=== PATIENT | male | born 1975 | race African-American/Black ===

== ENCOUNTER 2020-03-14 03:59 | Emergency (ER) | payer BC | END 2020-03-14 04:22 | LOC: ERS 03:59 | DX: F10.10 Alcohol abuse, uncomplicated (principal); I10 Essential (primary) hypertension; D50.9 Iron deficiency anemia, unspecified; Z79.899 Other long term (current) drug therapy | CPT/HCPCS: 99284 ==

== ENCOUNTER 2020-08-13 07:53 | Outpatient (CLI) | payer BC ==
--- NOTE | 2020-08-13 10:33 | ULT ---
SCROTAL SONOGRAM WITH DUPLEX EVALUATION: HISTORY: Left scrotal mass. FINDINGS: Right testicle is 4.9 cm length and the left 4.1 cm. Normal appearance with good color and spectral Doppler flow. Within the left side of the scrotum, favored to be associated with the epididymis is a large multisep tated and multiloculated cystic mass with a small amount of internal debris. The largest cystic comp onent is 3.2 cm x 2.8 cm x 2.6 cm greatest diameters. Measured overall, estimated at 5.1 cm. IMPRESSION: Large complex cystic mass in the left scrotum/epididymis. Large spermatocele versus complex epididym al cyst. Normal appearance of the testicles. POS: BST
== END 2020-08-13 07:54 | disposition home or self-care (01) ==
LOC: BICULT 07:53
PROVIDERS: ATTEND Urology
DX: N43.40 Spermatocele of epididymis, unspecified (principal)
CPT/HCPCS: 76870; 93976

== ENCOUNTER 2024-02-04 09:06 | Emergency (ER) | payer BC, OTHER ==
[2024-02-04] MEDS ORDERED: Boostrix 0.5 ML (Tdap) VIAL (>/=7 yrs of age) ONE (09:24)
[2024-02-04] MEDS ORDERED: Ketorolac Tromethamine 30 MG (1 mL) VIAL ONE (09:24)
== END 2024-02-04 10:25 | disposition home or self-care (01) ==
LOC: ERS 09:06
DX: S20.211A Contusion of right front wall of thorax, initial encounter (principal); S60.511A Abrasion of right hand, initial encounter; M25.511 Pain in right shoulder; I10 Essential (primary) hypertension; V00.141A Fall from scooter (nonmotorized), initial encounter; Z79.899 Other long term (current) drug therapy
CPT/HCPCS: 71046; 90471; 90715; 96372; J1885

== ENCOUNTER 2024-10-30 17:11 | Emergency (ER) | payer BC, OTHER ==
[2024-10-30 17:43] LABS: Bacteria/HPF None Seen HPF (None Seen); Bilirubin Negative (Negative); Blood, Urine Negative (Negative); CAUTI Indications for Culture Acute Hematuria; Clarity Clear (Clear); Glucose, Urine (Dipstick) Normal (Negative); Ketone, Urine Negative (Negative); Leukocyte Negative Leu/uL (Negative); Nitrite Negative (Negative); Protein, Urine (Dipstick) Negative (Neg-Trace); RBC/HPF 0-3 HPF (0-3); Specific Gravity, Urine 1.025 (1.002-1.036); Squamous Epithelial 0-3 HPF (0-3); Urobilinogen Normal mg/dL (Less than 2); WBC/HPF 0-3 HPF (0-3)
[2024-10-30 17:44] LABS: Urine Culture Reflex No No
[2024-10-30] MEDS ORDERED: Ketorolac Tromethamine 30 MG (1 mL) VIAL ONE (18:11)
[2024-10-30 18:55] LABS: #Basophils Less than 0.03 10x3/uL (0.0-0.2); %Basophils 0.2 % (0.0-1.0); %Eosinophils 0.9 % (0.0-10.0); %Lymphocytes 14.7 % (21.0-51.0); %Monocytes 7.9 % (0.0-10.0); Hematocrit 38.9 % (42.0-52.0); Hemoglobin 12.8 g/dL (14.0-18.0); Mean Corpuscular HGB CONC 32.9 g/dL (32.0-36.0); Mean Corpuscular Hemoglobin 29.2 pg (27.0-31.0); Mean Corpuscular Volume 88.8 fL (78.0-98.0); Mean Platelet Volume 9.7 fL (7.4-10.4); Platelet Count 245 10x3/uL (130-400); RBC Distribution Width 13.6 % (11.5-14.5); Red Blood Cell (RBC) Count 4.38 mill/uL (4.70-6.10)
[2024-10-30 19:09] LABS: ALT (SGPT) 25 U/L (8-55); AST (SGOT) 18 U/L (5-34); Albumin 3.8 g/dL (3.5-5.0); Alkaline Phosphatase 50 U/L (40-110); Anion Gap 12 mmol/L (10-20); BUN (Urea Nitrogen) 22 mg/dL (8.4-25.7); Bilirubin, Total 0.2 mg/dL (0.2-1.2); Calc. Creatinine Clearance 0 mL/min (70-130); Carbon Dioxide 24 mmol/L (22-29); Chloride 106 mmol/L (98-107); Estimated GFR 104; Glucose 110 mg/dL (70-105); Lipase 20 U/L (8-78); Potassium 4.1 mmol/L (3.5-5.1); Protein, Total 6.8 g/dL (6.0-8.3); Sodium 138 mmol/L (136-145)
== END 2024-10-30 19:55 | disposition home or self-care (01) ==
LOC: ERS 17:11
DX: R10.9 Unspecified abdominal pain (principal); I10 Essential (primary) hypertension; Z79.899 Other long term (current) drug therapy; Z87.891 Personal history of nicotine dependence
CPT/HCPCS: 36415; 71045; 74176; 80053; 81001; 83690; 85025; 96372; J1885